=== PATIENT | female | born 1955 | race Caucasian/White ===

== ENCOUNTER 2023-06-16 22:29 | Emergency (ER) | payer BC, SELFPAY ==
[2023-06-16 22:38] VITALS: BP 133/78; PULSE 82; RESP 16; TEMP 36; O2SAT 98
--- NOTE | 2023-06-16 22:45 | DI.RAD_ITS ---
Exam(s) XR KNEE LT 3V AP,LAT,KENDALL EXAM: XR KNEE LT 3V AP,LAT,KENDALL CLINICAL HISTORY: fall, impact, swelling, anterior pain. TECHNIQUE: 2D digital imaging was performed. COMPARISON: No exams were available for comparison FINDINGS: Four views No evidence of acute fracture or obvious joint effusion. There is significant advanced joint space n arrowing of the medial compartment. Also marginal osteophytes of the medial compartment. There is a n additional calcific density intimately associated with the medial cortex of the proximal medial tib ial metaphysis at this level. This is probably at the attachment site of the medial collateral ligam ent or other such as anserine tendons. Other consideration would be for a peculiar appearing osteo c hondroma at this level. Lesser degenerative change in the lateral compartment which exhibits relatively preserved height. So me degenerative change also noted in the patellofemoral compartment. There is soft tissue swelling anteriorly. No obvious patellar fracture. IMPRESSION: There is soft tissue swelling anteriorly. No obvious patellar fracture. Degenerative changes as described above. Addition bone density off the medial aspect of the approximate abscess in the tibia which is either a n osteo chondroma or related to MCL or other tendon insertion at this level, or a combination of both DATA REPOSITORY: RADIATION DOSE DELIVERED:
--- NOTE | 2023-06-16 22:45 | DI.CT_ITS ---
Exam(s) CT HEAD CERV SPINE FACIAL WO EXAM: CT HEAD CERV SPINE FACIAL WO CLINICAL HISTORY: fall, hit face, broke nose?, eval for basilar skul. TECHNIQUE: Imaging Protocol: Axial computed tomography images with coronal and sagittal reformatted images were created and reviewed COMPARISON: No exams were available for comparison FINDINGS: CT BRAIN: There are no skull fractures nor fluid in the visualized paranasal sinuses. There is no evidence of intracranial hemorrhage, mass effect, or shift of midline structures. There are no extra-axial fluid collections. The ventricles are not enlarged or shifted and there is no blo od within the ventricular system nor within the basal cisterns. Mild bilateral periventricular hypodensity consistent with chronic small vessel disease. No evidence of acute infarct. Septum cavum pellucidum incidentally noted. CT MAXILLOFACIAL BONES: Mildly depressed and comminuted nasal bone fractures. Nasal spine is intact. No other facial fractu res and no fluid in the paranasal sinuses. No evidence of orbital blowout fracture. CT CERVICAL SPINE: There is no evidence of acute fracture nor listhesis. No significant prevertebral soft tissue swelli ng. There is mild facet arthropathy. There is fusion of the bilateral facet joints at C3-4 level. No facet malalignment evident. No significant osseous lesions evident. There is chronic disc space narrowing at C5-6 level as well as anterior osteophytes and small Luschka joint osteophytes posteriorly at this level. IMPRESSION: No acute intracranial findings on this noninfused CT scan of the brain. Nasal bone fractures. No evidence of orbital blowout fracture nor other facial fractures and no flui d in the paranasal sinuses. No evidence of cervical spine fracture, malalignment, nor acute compromise of the cervical spinal can al. Chronic disc space narrowing C5-6 level and multilevel facet arthropathy. RADIATION DOSE DELIVERED: 2,198.46mGy.cm Total DLP DATA REPOSITORY: All CT scans at this facility are submitted to the National Radiology Data Registry (NRDR) Dose Index Registry (DIR) with the [employer] (ACR). RADIATION OPTIMIZATION: All CT scans at this facility use at least one of these dose optimization te chniques: automated exposure control; mA and/or kV adjustment per patient size (includes targeted exa ms where dose is matched to clinical indication); or iterative reconstruction.
--- NOTE | 2023-06-16 23:12 | W.ED.GENAD ---
Discharge Plan Disposition Patient Disposition: Home Condition: Good Discharge Details Clinical Impression: Closed fracture nasal bone, Contusion of knee, left Primary Care Provider: Unknown,Unknown ED Provider: Matt Mendez Home Meds and New Rx's Prescriptions: No Action thyroid (pork) [[place] Thyroid] 120 mg tablet 130 mg PO DAILY amlodipine 10 mg tablet 10 mg PO DAILY metformin 1,000 mg tablet 1,000 mg PO DAILY sertraline [Zoloft] 50 mg tablet 50 mg PO DAILY Discharge Instructions Instructions: Nasal Fracture (ED), Knee Pain (ED) Additional Instructions: At this time thankfully the CT scan of your head neck and face shows no evidence of fracture of your skull or spine. There is no bleeding in your brain. However there is evidence of mild the fracture over the bridge of your nose. Please take Tylenol and Motrin as needed for pain. Please apply ice to the area. The bruising will worsen tomorrow. In addition to this, the x-ray of your knee shows notable arthritis, as well as potential small fracture or damage to your patella. In addition to this you do have a type of bone abnormality noted in your proximal tibia. Please follow-up closely with the social media marketing specialist for further imaging of CT scan or potential MRI. Please use the knee brace only as needed for comfort. Please use crutches as needed to help reduce the weightbearing on your left lower extremity. If you notice any worsening of your symptoms, or any new symptoms such as vomiting, diarrhea, fever, chills, shortness of breath, chest pain, numbness, weakness, or fainting , please return immediately to the emergency department for reevaluation. Please follow up with your primary care provider as soon as possible for reassessment and reevaluation. As always, it was a pleasure participating in your medical care today. HPI General Date/Time Provider Initiated Documentation: 06/16/23 22:40. HPI Narrative: This is a 67-year-old female with a past medical history of type 2 diabetes, hypertension, high cholesterol, previous left knee meniscal injury, who is not on any blood thinners, who presents today for fall. 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 She had no loss of consciousness, she had some immediate bleeding from the nose. 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 Unfortunately she developed swelling and bruising in the nose and face, as well as worsening pain and tenderness in the left knee. She came to the ER for further assessment. She did receive Tylenol and Motrin from doctors who are at the facility at the time of the injury at around 7:30 PM. Currently aside for mild pain in her face and pain in her knees she denies any other complaints. No dizziness, chest pain or shortness of breath. No hip pain. No other complaints. Pain is made worse in the knee with ambulation. Related Data Home Medications Medication Instructions Recorded Confirmed amlodipine 10 mg tablet 10 mg PO DAILY 06/16/23 06/16/23 metformin 1,000 mg tablet 1,000 mg PO DAILY 06/16/23 06/16/23 sertraline 50 mg tablet (Zoloft) 50 mg PO DAILY 06/16/23 06/16/23 thyroid (pork) 120 mg tablet 130 mg PO DAILY 06/16/23 06/16/23 ([place] Thyroid) Allergies Allergy/AdvReac Type Severity Reaction Status Date / Time meloxicam [From Mobic] Allergy Mild Nausea Verified 06/16/23 22:35 General Stated Complaint: Orthopedic CHANTAL: 3 Review of Systems All systems reviewed & are unremarkable except as noted in HPI and below Exam Narrative Exam Narrative: 1.Const: Well-nourished, Well-developed, appearing stated age 2.Eyes: PERRL, no conjunctival injection, and symmetrical lids. 3.ENT: Moist MM. Neck: Symmetric, trachea midline, No thyromegaly. Patient demonstrates intact dentition with no signs of tooth avulsion or fracture, no signs of jaw deformity, no evidence of a LeFort's fracture, with an intact palate, nose and orbital region. Notable tenderness over the bridge of the nose though. Bruising swelling is noted. No active internal nosebleeding. There is no evidence of a nasal septal hematoma. No proptosis. Jaw closes symmetrically. Airway is clear. There is no evidence of raccoon eyes, fitzgerald sign, CSF rhinorrhea, mastoid tenderness, cranial crepitus, hemotympanum, exophthalmos, or hyphema. However she does have slight amount of bruising at the lateral aspect of the bridge of the nose. 4.CVS: +S1/S2, No murmurs or gallops. Peripheral pulses 2+ and equal in all extremities. Brisk capillary refill in all extremities. 5.RESP: Unlabored respiratory effort. Clear to auscultation bilaterally. No wheezes rales or rhonchi 6.GI: Soft, Nontender/Nondistended, No hepatosplenomegaly. No guarding or rebound. 7.MSK: Normocephalic, Extremities w/o deformity. No cyanosis or clubbing, mild tenderness over the patella, and the lateral proximal fibula. No significant tenderness over the tibial plateau. Knee is stable to varus and valgus stressing, however there appears to be minimal laxity with valgus stressing. Anterior drawer test normal. Minimal pain with flexion. William's test elicits mild generalized knee pain. 8.Skin: Warm, Dry. No rashes or lesions. 9.Neuro: class c driver II-XII grossly intact. Sensation grossly intact, no focal neurologic deficits. All 6 cardinal planes of vision are fully intact. No evidence of rotatory or vertical nystagmus. The patient demonstrated a normal [id number], good dexterity. There was no evidence of dysdiadochokinesia. Patient was able to ambulate without difficulty. There was no wide-based gait. Romberg testing was normal. [id number]-[id number] testing was normal. Sensation was intact bilaterally as well as muscle strength bilaterally for all extremities. Patient was able to verbalize butter cup with no slurring, or miss pronunciation. 10.Psych: (AAO) x3. Appropriate mood and affect Course Vital Signs Vital signs: Vital Signs Temperature 36.0 C L 06/16/23 22:38 Pulse 82 06/16/23 22:38 Respiratory Rate 16 06/16/23 22:38 Blood Pressure 133/78 06/16/23 22:38 Pulse Oximetry 98 06/16/23 22:38 Temperature 36.0 C L 06/16/23 22:38 Temperature Source Oral 06/16/23 22:38 Pulse 82 06/16/23 22:38 Respiratory Rate 16 06/16/23 22:38 Respiratory Effort Normal, Non-Labored 06/16/23 22:52 Blood Pressure 133/78 06/16/23 22:38 Blood Pressure Position Sitting 06/16/23 22:38 Pulse Oximetry 98 06/16/23 22:38 Oxygen Delivery Method Room Air 06/16/23 22:38 Oxygen Flow Rate 0 06/16/23 22:38 Pain Level 8 06/16/23 22:38 Medical Decision Making This is a 67-year-old female with a past medical history of type 2 diabetes, hypertension, high cholesterol, previous left knee meniscal injury, who is not on any blood thinners, who presents today for fall. 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 She had no loss of consciousness, she had some immediate bleeding from the nose. 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 Unfortunately she developed swelling and bruising in the nose and face, as well as worsening pain and tenderness in the left knee. She came to the ER for further assessment. She did receive Tylenol and Motrin from doctors who are at the facility at the time of the injury at around 7:30 PM. Currently aside for mild pain in her face and pain in her knees she denies any other complaints. No dizziness, chest pain or shortness of breath. No hip pain. No other complaints. Pain is made worse in the knee with ambulation. Physical exam demonstrates well-appearing female. Neurologic exam normal with no significant deficits. Notable bruising over the bridge of the nose and the face. Tenderness over the patella and the knee. No midline cervical thoracic or lumbar spine tenderness. No other evidence of trauma throughout the rest of her exam. Concern for facial fracture, as well as knee injury/potential fracture. Will get x-rays and CT scans of these areas, will monitor closely and reassess. 12:[address] imaging shows no evidence of intracranial bleed fracture or abnormality. Mild nasal bridge fracture. No other significant abnormality otherwise. X-ray of the knee shows evidence of some irregular components. Patella which may be degenerative in nature, or potential small fracture. There is also evidence of an osteochondroma noted in the proximal tibia. Knee immobilizer was placed. Patient declined crutches. Patient otherwise feels well. Repeat neurologic assessment normal. Suspect questionable mild concussion. Will recommend continued NSAIDs and ice for nasal fracture. Patient does not live here, she will be following up with her social media marketing specialist back in [place]. A disc has been made for the patient. Recommend close orthopedic follow-up as well as close follow-up with her physical therapist. Otherwise discussed red flags for which to return. Patient appears clinically well. I have extensively reviewed the treatment plan and discharge instructions with the patient. I have addressed all patient concerns at this time. The patient was made aware of what symptoms to monitor for that would warrant a return to the emergency department. Discussed the plan with the patient, they demonstrate verbal understanding and agreement with our assessment and plan at this time. The documentation in this chart was dictated using [employer] dictation software. Please excuse any dictation errors. FINDINGS: Brain: There is diffuse cerebral atrophy concordant with the patient's age. Chronic small vessel deep white matter ischemic disease is suggested by areas of patchy white matter low attenuation. No intracranial hemorrhage. No acute large territory CVA. No mass. No acute edema. No acute intracranial abnormality. Cerebral ventricles: Incidental cavum septum pellucidum. No acute ventriculomegaly. Paranasal sinuses: Visualized sinuses are unremarkable. No fluid levels. Mastoid air cells: Visualized mastoid air cells are well aerated. Bones/joints: Unremarkable. No acute fracture. Soft tissues: Unremarkable. IMPRESSION: 1. No acute intracranial abnormality. 2. No intracranial hemorrhage. 3. Age-related atrophy and chronic small vessel deep white matter ischemic change FINDINGS: Orbital cavities: Ocular globes and orbital contents are unremarkable. Bones/joints: Nasal bone fracture. Fracture both the right and left nasal bone with minor depression and displacement. See series 10: Image 178. Rightward deviation of the nasal septum. No nasal septal fracture. Paranasal sinuses: Sinuses are clear. Soft tissues: Soft tissue swelling of the nasal bridge. No soft tissue foreign body. IMPRESSION: 1. Bilateral nasal bone fracture with minor depression and displacement. 2. Soft tissue swelling over the nasal bridge. No foreign body. FINDINGS: Bones/joints: No cervical spine fracture. Degenerative cervical spine changes. Severe degenerative disc disease at C5-C6. Degenerative facet and uncovertebral joint changes. Loss of the normal cervical lordosis with mild mid cervical kyphosis. This could be positional or secondary to muscle spasm. Lungs: Lung apices are clear Soft tissues: Paravertebral soft tissues are unremarkable. IMPRESSION: No cervical spine fracture or dislocation. Degenerative change. Thank you for allowing us to participate in the care of your patient. Dictated and Authenticated by: Micah Vargas MD 06/16/2023 11:35 PM Eastern Time ([place] & [place]) FINDINGS: Bones/joints: Skeletal degenerative changes are seen with osteophytosis and joint space narrowing. There is some irregularity to the superior pole of the patella on series 3, image 1 that is favored to be related to degenerative change/enthesophyte formation. However, findings should be correlated with any concern for injury to this region. There is a probable osteochondroma arising from the proximal medial tibia. Soft tissues: There is a suprapatellar knee effusion and anterior soft tissue swelling. IMPRESSION: 1. There is some irregularity to the superior pole of the patella on series 3, image 1 that is favored to be related to degenerative change/enthesophyte formation. However, findings should be correlated with any concern for injury to this region. 2. There is a suprapatellar knee effusion and anterior soft tissue swelling 3. There is a probable osteochondroma arising from the proximal medial tibia. Other findings/details as above. If symptoms remain concerning, CT scan or MRI could be obtained. Thank you for allowing us to participate in the care of your patient. Dictated and Authenticated by: Kaylynn Flower MD 06/16/2023 11:49 PM Eastern Time ([place] & [place]) Quality:SDOH Health Related Social Needs: No Data to Display PFSH All Active Problems (Updated 06/17/23 @ 00:20 by Matt Mendez DO) Contusion of knee, left (Acute) Closed fracture nasal bone (Acute) Social History Smoking/Tobacco Use Status: Never Smoking risk assessment performed?: Yes Alcohol Intake: current Alcohol Intake frequency: holidays/special occasions only Drug use: Never Substance use type: does not use Housing: house Do you feel safe at home: Yes Do you feel safe in your relationship?: Yes
[2023-06-16 23:25] VITALS: BP 132/73; PULSE 76; RESP 18; O2SAT 97; O2SAT 98
[2023-06-16 23:30] VITALS: BP 121/74; PULSE 74; O2SAT 96
[2023-06-16 23:31] VITALS: O2SAT 95
--- NOTE | 2023-06-16 23:35 | DI.VRAD_ITS ---
PROCEDURE INFORMATION: Exam: CT Head Without Contrast Exam date and time: 06/16/2023 11:02 PM Age: 67 years old Clinical indication: Injury or trauma; Blunt trauma (contusions or hematomas); Other: General; Patient HX: Fall, hit face, broke nose? , Eval for basilar skull TECHNIQUE: Imaging protocol: Computed tomography of the head without contrast. COMPARISON: No relevant prior studies available. FINDINGS: Brain: There is diffuse cerebral atrophy concordant with the patient's age. Chronic small vessel deep white matter ischemic disease is suggested by areas of patchy white matter low attenuation. No intracranial hemorrhage. No acute large territory CVA. No mass. No acute edema. No acute intracranial abnormality. Cerebral ventricles: Incidental cavum septum pellucidum. No acute ventriculomegaly. Paranasal sinuses: Visualized sinuses are unremarkable. No fluid levels. Mastoid air cells: Visualized mastoid air cells are well aerated. Bones/joints: Unremarkable. No acute fracture. Soft tissues: Unremarkable. IMPRESSION: 1. No acute intracranial abnormality. 2. No intracranial hemorrhage. 3. Age-related atrophy and chronic small vessel deep white matter ischemic change. PROCEDURE INFORMATION: Exam: CT Maxillofacial Without Contrast Exam date and time: 06/16/2023 11:02 PM Age: 67 years old Clinical indication: Injury or trauma; Blunt trauma (contusions or hematomas); Other: General; Patient HX: Fall, hit face, broke nose? , Eval for basilar skull TECHNIQUE: Imaging protocol: Computed tomography of the face without contrast. COMPARISON: No relevant prior studies available. FINDINGS: Orbital cavities: Ocular globes and orbital contents are unremarkable. Bones/joints: Nasal bone fracture. Fracture both the right and left nasal bone with minor depression and displacement. See series 10: Image 178. Rightward deviation of the nasal septum. No nasal septal fracture. Paranasal sinuses: Sinuses are clear. Soft tissues: Soft tissue swelling of the nasal bridge. No soft tissue foreign body. IMPRESSION: 1. Bilateral nasal bone fracture with minor depression and displacement. 2. Soft tissue swelling over the nasal bridge. No foreign body. PROCEDURE INFORMATION: Exam: CT Cervical Spine Without Contrast Exam date and time: 06/16/2023 11:02 PM Age: 67 years old Clinical indication: Injury or trauma; Blunt trauma (contusions or hematomas); Other: General; Patient HX: Fall, hit face, broke nose? , Eval for basilar skull TECHNIQUE: Imaging protocol: Computed tomography of the cervical spine without contrast. COMPARISON: No relevant prior studies available. FINDINGS: Bones/joints: No cervical spine fracture. Degenerative cervical spine changes. Severe degenerative disc disease at C5-C6. Degenerative facet and uncovertebral joint changes. Loss of the normal cervical lordosis with mild mid cervical kyphosis. This could be positional or secondary to muscle spasm. Lungs: Lung apices are clear. Soft tissues: Paravertebral soft tissues are unremarkable. IMPRESSION: No cervical spine fracture or dislocation. Degenerative change. Dictated and Authenticated by: Micah Vargas MD. Ordering:DAMI Gutierrez MD
[2023-06-16 23:40] VITALS: O2SAT 96
[2023-06-16 23:50] VITALS: O2SAT 95
--- NOTE | 2023-06-16 23:50 | DI.VRAD_ITS ---
PROCEDURE INFORMATION: Exam: XR Left Knee Exam date and time: 06/16/2023 11:12 PM Age: 67 years old Clinical indication: Injury or trauma; Fall; Blunt trauma; Knee; Left TECHNIQUE: Imaging protocol: Radiologic exam of the left knee. Views: 3 views. COMPARISON: No relevant prior studies available. FINDINGS: Bones/joints: Skeletal degenerative changes are seen with osteophytosis and joint space narrowing. There is some irregularity to the superior pole of the patella on series 3, image 1 that is favored to be related to degenerative change/enthesophyte formation. However, findings should be correlated with any concern for injury to this region. There is a probable osteochondroma arising from the proximal medial tibia. Soft tissues: There is a suprapatellar knee effusion and anterior soft tissue swelling. IMPRESSION: 1. There is some irregularity to the superior pole of the patella on series 3, image 1 that is favored to be related to degenerative change/enthesophyte formation. However, findings should be correlated with any concern for injury to this region. 2. There is a suprapatellar knee effusion and anterior soft tissue swelling. 3. There is a probable osteochondroma arising from the proximal medial tibia. Other findings/details as above. If symptoms remain concerning, CT scan or MRI could be obtained. Dictated and Authenticated by: Kaylynn Flower MD. Ordering:DAMI Gutierrez MD
== END 2023-06-17 00:37 | disposition home or self-care (01) ==
LOC: ER 06-17 00:48
PROVIDERS: Emergency Provider Student in an Organized Health Care Education/Training Program
DX: S02.2XXA Fracture of nasal bones, initial encounter for closed fracture (principal); S80.02XA Contusion of left knee, initial encounter; W01.190A Fall on same level from slipping, tripping and stumbling with subsequent striking against furniture, initial encounter
CPT/HCPCS: 29505; 73562; 99284; 70450; 70486; 72125